=== PATIENT | male | born 1940 | race Caucasian/White ===

== ENCOUNTER 2016-12-04 14:40 | Emergency (ER) | payer MEDICARE, OTHER ==
--- NOTE | ~2016-12-04 | ENPV ---
Vascular Lower Extremities DVT Study Procedure Demographics Patient Name YANE KING Date of Study 12/04/2016 Patient Number [id number] Gender Male Date of 1940 Age 76 Visit Number [id number] Height Accession Number [id number] Weight Room Number BSA BMI Referring Daksha Lewis MD Physician Daksha Mina MD Physician Crispin King MD Physician Ordering Physician Daksha Mina Scouts MD Linux Kernel Developer Antonia Saqib [facility], [facility] Conclusions Summary No evidence of deep vein thrombosis or superficial thrombophlebitis in the lower extremities bilaterally . Procedure Type of Study: Veins:Lower Extremities DVT Study, Lower Extremity Left, Venous Duplex Lower Extremity Bilateral. Appropriate Use Criteria:9 Patient Status:Routine. Study Location:ER. Technical Quality:Good visualization. Velocities are measured in cm/s ; Diameters are measured in cm Right Lower Extremities DVT Study Measurements Right 2D and Doppler Measurements + + + + +------+------+ + !Location !Visualized!Compressibility!Thrombosis!Signal!Reflux!Reflux ! ! ! ! ! ! ! !(sec) ! + + + + +------+------+ + !GSV Thigh !Yes !Yes !None !Phasic!No ! ! + + + + +------+------+ + !Common !Yes !Yes !None !Phasic!No ! ! !Femoral ! ! ! ! ! ! ! + + + + +------+------+ + !Prox !Yes !Yes !None !Phasic!No ! ! !Femoral ! ! ! ! ! ! ! + + + + +------+------+ + !Mid Femoral!Yes !Yes !None !Phasic!No ! ! + + + + +------+------+ + !Dist !Yes !Yes !None !Phasic!No ! ! !Femoral ! ! ! ! ! ! ! + + + + +------+------+ + !Popliteal !Yes !Yes !None !Phasic!No ! ! + + + + +------+------+ + !Gastroc !Yes !Yes !None !Phasic!No ! ! + + + + +------+------+ + !PTV !Yes !Yes !None !Phasic!No ! ! + + + + +------+------+ + !Peroneal !Yes !Yes !None !Phasic!No ! ! + + + + +------+------+ + Left Lower Extremities DVT Study Measurements Left 2D and Doppler Measurements + + + + +------+------+ + !Location !Visualized!Compressibility!Thrombosis!Signal!Reflux!Reflux ! ! ! ! ! ! ! !(sec) ! + + + + +------+------+ + !GSV Thigh !Yes !Yes !None !Phasic!No ! ! + + + + +------+------+ + !Common !Yes !Yes !None !Phasic!No ! ! !Femoral ! ! ! ! ! ! ! + + + + +------+------+ + !Prox !Yes !Yes !None !Phasic!No ! ! !Femoral ! ! ! ! ! ! ! + + + + +------+------+ + !Mid Femoral!Yes !Yes !None !Phasic!No ! ! + + + + +------+------+ + !Dist !Yes !Yes !None !Phasic!No ! ! !Femoral ! ! ! ! ! ! ! + + + + +------+------+ + !Popliteal !Yes !Yes !None !Phasic!No ! ! + + + + +------+------+ + !Gastroc !Yes !Yes !None !Phasic!No ! ! + + + + +------+------+ + !PTV !Yes !Yes !None !Phasic!No ! ! + + + + +------+------+ + !Peroneal !Yes !Yes !None !Phasic!No ! ! + + + + +------+------+ + Impressions Right Impression No DVT seen. Left Impression No DVT seen. Signature dtt: LAURA KENNEDY dtd: 12/04/16 1518 Physician Self [place]
--- NOTE | ~2016-12-04 | ER ---
PATIENT'S NAME: YANE KING [facility] AGE: 76 Y [address] ROOM: [place] [address] LOCATION: [facility] ADMIT DATE: 12/04/2016 ER/Outpatient Report DISCHARGE DATE: 12/04/2016 FAMILY PHYSICIAN: Steven Roa MD ATTENDING PHYSICIAN: Shyam You Time of Arrival: Time of Evaluation: Admission date and time documented in the medical record. I saw the patient at 1500 hours. CHIEF COMPLAINT: Bilateral lower leg pain and swelling, right greater than left. HISTORY OF PRESENT ILLNESS: This patient is a 76-year-old male, who has had right low back pain and right sciatica for the past 3 weeks. He has had increasing swelling in below the knees of both legs over the past 2 days with increased pain in the lower legs over the past 2 days. The right is greater than the left. No change in bladder or bowel habits. No fever, chills, sweats, coughs, colds, or flus. No lightheadedness, dizziness, syncope, or near syncope. No fall or trauma. No headache, eyes, ears, nose, throat, or spine pain. No chest pain, shortness of breath. No abdominal pain, nausea, vomiting, or diarrhea. No urinary frequency, urgency, or dysuria. No incontinence. No skin eruptions or rash. No history of neurological changes, psychiatric issues, or endocrine problems. HOME MEDICATIONS: See attached medication list. ALLERGIES: NONE. SOCIAL HISTORY: The patient smokes a pack of cigarettes a day. Occasional intake of alcohol. SIGNIFICANT PAST MEDICAL HISTORY: 1. Tobacco abuse. 2. COPD. 3. Pneumonia. 4. Benign prostatic hypertrophy. 5. Chronic respiratory failure. PAST SURGICAL HISTORY: Operations: 1. Cholecystectomy. PATIENT'S NAME: YANE KING [facility] AGE: 76 Y [address] ROOM: [place] [address] LOCATION: [facility] ADMIT DATE: 12/04/2016 ER/Outpatient Report DISCHARGE DATE: 12/04/2016 FAMILY PHYSICIAN: Steven Roa MD ATTENDING PHYSICIAN: Shyam You 2. Appendectomy. 3. Amputation of the right forearm. 4. Circumcision. REVIEW OF SYSTEMS: All systems reviewed by me are negative with the exception of those discussed in the history of the present illness. PHYSICAL EXAMINATION: VITAL SIGNS: Temperature 97.8, tympanic; pulse 98; respirations 20; blood pressure 230/107; and O2 saturation on room air is 96%. HEENT: Head; normocephalic. Eyes, ears, nose, throat; clear. NECK: Negative. SPINE: Negative. LUNGS: Clear. No rales, rhonchi, or wheezes. HEART: Regular. Pulses are palpable. No chest wall or ribcage pain to palpation. ABDOMEN: Mildly obese, soft, nondistended, and nontender. Good bowel tones. No organomegaly or abnormal mass palpable. No CVA tenderness. EXTREMITIES: The patient has pitting edema of the lower extremities bilaterally right is little bit worse than the left. No cyanosis. No erythema. It is not hot to the touch. Tender. Neurovascularly appears to be intact. SKIN: Clear. NEUROLOGIC: Straight leg raising is positive on the right at about 35 degrees, negative on the left. Strength is intact. IMAGING STUDIES: Venous Doppler study of both legs showed no evidence of DVT. LABORATORY DATA: CMS was normal except for a low anion gap of 8.2, low calcium of 8.3, and CRP was 5.55. ProBNP was 79. White count was 9900, 65 segs, 21 lymphs, 13 monos, and 1 baso. Hemoglobin is 15.9 with a hematocrit of 47.3, and platelet count is 134,000. PTT was 33, prothrombin time is 9.4 with an INR of 0.9. IMPRESSION: 1. Peripheral edema. No evidence of deep venous thrombosis, cyanosis, erythema, or infection. 2. Low back pain with right sciatica. 3. Tobacco abuse with chronic obstructive pulmonary disease. PLAN: The patient was given Toradol 60 mg IM in the emergency room. Solu-Medrol 125 mg IM in the emergency room. Discharged to home. Observation. Activity as tolerated. Continue present home medications and care. Toradol 10 mg 1 every PATIENT'S NAME: YANE KING [facility] AGE: 76 Y [address] ROOM: [place], [place] [address] LOCATION: [facility] ADMIT DATE: 12/04/2016 ER/Outpatient Report DISCHARGE DATE: 12/04/2016 FAMILY PHYSICIAN: Steven Roa MD ATTENDING PHYSICIAN: Shyam You 6 hours orally x12 doses. Medrol Dosepak to take as directed. We will schedule the patient for MRI of the lumbosacral spine on Tuesday or Tuesday of this coming week. Follow up with personal physician in 3 to 4 days. Discussion ensued with the patient regard to my findings and recommendations, he understands. SHYAM YOU MD SDS/modl /[id number] d: 12/04/16 2319 t: 12/05/16 0612, OUTPATIENT REPORT
[~2016-12-04 14:40] MED LIST: CPAP; DELTASONE20 MG PO; FLOMAX0.4 MG PO
[2016-12-04 16:00] LABS: BASOPHIL # 0.1 K/uL (0.0-0.2); BASOPHIL % 0.5 %; HEMATOCRIT 47.3 % (37.0-53.0); HEMOGLOBIN 15.9 g/dL (11.0-16.0); IMMATURE GRANULOCYTE # 0.1 K/uL (0.0-0.3); IMMATURE GRANULOCYTE % 0.5 %; LYMPHOCYTE # 2.1 K/uL (0.8-4.0); LYMPHOCYTE % 20.9 %; MCH 31.5 pg (27.0-34.0); MCHC 33.6 gm/dL (32.0-36.5); MCV 93.8 fl (83.0-98.0); MONOCYTE # 1.3 K/uL (0.0-1.0); MONOCYTE % 13.1 %; MPV 10.6 fl (9.4-12.4); NEUTROPHIL # (ANC) 6.4 K/uL (1.4-9.0); NRBC % 0 /100WBC (0-0.00); PLATELET COUNT 134 K/uL (150-450); RBC 5.04 M/uL (3.50-5.50); RDW-CV 13.8 % (11.9-14.6); WBC 9.9 K/uL (4.0-11.0)
[2016-12-04 16:02] LABS: PROTIME 9.4 SECONDS (9.8-11.4); PTT 33 SECONDS (25-32)
[2016-12-04 16:19] LABS: ALBUMIN 3.3 gm/dL (3.5-5.0); ANION GAP 8.2 (10.0-19.0); CALCIUM 8.3 mg/dL (8.5-10.5); CREATININE 1.2 mg/dL (0.6-1.3); POTASSIUM 4.2 mMol/L (3.7-5.1); TOTAL BILIRUBIN 0.5 mg/dL (0.0-1.5)
[2016-12-16] MEDS ORDERED: NORCO 5-325 TA1 EACH PO (15:18)
== END 2016-12-04 17:12 | disposition disaster alternative care site (69) ==
LOC: GMED 14:40
PROVIDERS: Emergency Medicine
DX: R60.0 Localized edema (principal); M54.41 Lumbago with sciatica, right side; J44.9 Chronic obstructive pulmonary disease, unspecified; F17.210 Nicotine dependence, cigarettes, uncomplicated; I10 Essential (primary) hypertension; Z87.01 Personal history of pneumonia (recurrent); Z87.438 Personal history of other diseases of male genital organs; Z90.49 Acquired absence of other specified parts of digestive tract; Z89.211 Acquired absence of right upper limb below elbow; Z98.890 Other specified postprocedural states
CPT/HCPCS: J1885; J2930

== ENCOUNTER → 2016-12-06 | Outpatient (CLI) | payer MEDICARE, OTHER ==
[~2016-12-06] MED LIST changes: +NORCO 5-325 TA1 EACH PO
== END | disposition disaster alternative care site (69) ==
LOC: GRAD 10:42
DX: M54.41 Lumbago with sciatica, right side (principal); M43.16 Spondylolisthesis, lumbar region; M54.16 Radiculopathy, lumbar region

== ENCOUNTER → 2016-12-16 | Day surgery (SDC) | payer MEDICARE, OTHER ==
[~2016-12-16] VITALS: Ht 170.2 cm; Wt 96.7 kg
== END ==
LOC: GSDC 14:22 → GPOC 14:30
PROC: 3E0S33Z Introduction of Anti-inflammatory into Epidural Space, Percutaneous Approach (ICD-10-PCS; principal; 2016-12-16)
PROC: 3E0S3BZ Introduction of Anesthetic Agent into Epidural Space, Percutaneous Approach (ICD-10-PCS; 2016-12-16)
DX: M54.16 Radiculopathy, lumbar region (principal); J44.9 Chronic obstructive pulmonary disease, unspecified; G47.30 Sleep apnea, unspecified; Z79.891 Long term (current) use of opiate analgesic; Z91.040 Latex allergy status; Z79.899 Other long term (current) drug therapy; Z89.211 Acquired absence of right upper limb below elbow
CPT/HCPCS: J1030; J1040

== ENCOUNTER 2017-01-14 16:00 | Inpatient (IN) | payer MEDICARE, OTHER ==
[~2017-01-14] VITALS: Ht 170.2 cm; Wt 96.8 kg
--- NOTE | ~2017-01-14 | OR ---
PATIENT'S NAME: YANE KING [facility] AGE: 76 Y [address] ROOM: [address] [address] LOCATION: [facility] ADMIT DATE: 01/19/2017 OR/Procedure Report DISCHARGE DATE: FAMILY PHYSICIAN: Steven Roa MD ATTENDING PHYSICIAN: Sofia Light SURGEON: Sofia Light MD AIRCRAFT ENGINE MECHANIC SUPERVISOR: Claudia Dailey CST DATE OF PROCEDURE: 01/19/2017 PREOPERATIVE DIAGNOSIS: Lumbar spondylosis and stenosis. POSTOPERATIVE DIAGNOSIS: Lumbar radiculopathy secondary to lumbar spondylosis and stenosis. PROCEDURES PERFORMED: 1. Bilateral laminectomy with decompression of neural elements with foraminotomy without diskectomy at L4-5. 2. Bilateral laminectomy and foraminotomy with decompression of neural elements and diskectomy at L5-S1. 3. Use of structural allograft and morcellized autograft fusion at L5-S1, both interbody fusion and posterolateral fusion. 4. Posterior instrumentation with pedicle screws bilaterally at L5 and S1. 5. Use of Trifacta navigation system for pedicle screw placement and use of O- arm for intraoperative visualization. ANESTHESIA: General. HISTORY: This patient is a 76-year-old gentleman who presented with burning pain around the right hip going down into the right leg. MRI scan showed severe right-sided foraminal stenosis which had worsened since 2010 and which could be causing right L4 radiculopathy. The patient also had a decreased right knee jerk. Surgery was recommended for the patient. The above procedures along with the benefits, risks, and alternatives were discussed with him. With his consent, he was brought to the operating room for surgery. PROCEDURE IN DETAIL: In the operating room, the patient was placed in a supine position. Anesthesia was induced, and he was intubated. He was rolled to a prone position on a Jewel table, taking care to protect all pressure points. The incision line was marked out in the midline of his lower back. The whole area was prepped and draped in a sterile fashion. Local anesthesia was infiltrated along the incision line. The #10 blade was used to open the incision and deepen it to the fascia. Self-retaining retractors were placed. The Bovie was used to deepen the incision until the tips of the spinous PATIENT'S NAME: RACICKY, [facility] AGE: 76 Y [address] ROOM: [address] [place], [place] [address] LOCATION: [facility] ADMIT DATE: 01/19/2017 OR/Procedure Report DISCHARGE DATE: FAMILY PHYSICIAN: Steven Roa MD ATTENDING PHYSICIAN: Sofia Light processes were visualized. Paraspinous muscles were dissected off the spinous processes and laminae of L3, L4, L5, and S1. Self-retaining retractors were inserted. Dissection was carried on laterally until we visualized the transverse processes at L4, L5, and S1. The reference frame was attached to the spinous process of L3, and registration was carried out using the stealth system. The O-arm was brought in, and a 3-dimensional picture of the spine was acquired. This O-arm image was merged with the stealth image, and a virtual picture of the spine was created on the workstation. Using these virtual picture of the spine, pedicle screws were placed into the L5 and S1 pedicles. The process for placing the pedicle screws was the same for each screw and will be described for one screw as representing all the others. Using the anatomical entry points, the entry point for the pedicles was identified and verified with the image on the workstation. A harbor boat pilot hole was then drilled. The pedicle finder was used to deepen this hole again using the image on the screen to detect the trajectory and depth. Once the hole was made, the ball-tipped probe was used to feel around to ensure that the wall of the pedicle was not breached. Appropriate-sized screw was then placed in each hole. This was done sequentially for the L5 and S1 pedicles. Decompression was then carried out at L4-5 where the patient had severe foraminal stenosis on the right side. The decompression continued until the nerve roots at L4, L5, and S1 were clearly visualized. The laminectomy bone was harvested to be used for subsequent posterolateral fusion. Having completed the decompression, attention was directed to fusion. The patient had spondylolisthesis and spondylolysis at L5-S1. Bilateral diskectomy was then carried out at L5-S1. The endplates were shaved down. Appropriate-sized pieces of allograft bone filled in with the patient's autograft bone were inserted bilaterally at L5-S1. The transverse processes were also decorticated, and bone graft was placed on top of the transverse processes for posterolateral fusion. A final O-arm image was obtained to confirm placement of the pedicle screws as well as the interbody material, and we had very good placement. Hemostasis was achieved. The retractors were removed. The incision was closed in layers using appropriate suture materials. A sterile dressing was applied. The patient was rolled back to a supine position. His anesthesia was reversed. He was extubated and taken to the recovery room to complete his recovery. I was present at and performed every aspect of this procedure, assisted at different stages by the operating room nurses. There were no apparent intraoperative complications. Swabs, needles, and instruments were all PATIENT'S NAME: YANE KING [facility] AGE: 76 Y [address] ROOM: [address] [address] LOCATION: [facility] ADMIT DATE: 01/19/2017 OR/Procedure Report DISCHARGE DATE: FAMILY PHYSICIAN: Steven Roa MD ATTENDING PHYSICIAN: Sofia Light accounted for at the end of the case. Estimated blood loss was less than 500 mL, and there was no reason for blood transfusion. I expect the patient to benefit from this procedure. In particular, I expect his right hip burning pain to improve. SOFIA LIGHT MD CNO/modl /[id number] CC: Steven Roa MD d: 01/22/17 1313 t: 01/26/17 1409, OPERATIVE SUMMARY
--- NOTE | ~2017-01-14 | DS ---
PATIENT'S NAME: YANE KING [facility] AGE: 76 Y [address] ROOM: [address] [address] LOCATION: [facility] ADMIT DATE: 01/19/2017 Discharge Summary DISCHARGE DATE: 01/23/2017 FAMILY PHYSICIAN: Steven Roa MD ATTENDING PHYSICIAN: Sofia Gardner REASON FOR ADMISSION: The patient is scheduled admission for an elective procedure. The patient presented with lower back pain. TREATMENT RENDERED: The patient was taken to the operating room on January 19, 2017. He underwent lumbar decompression and fusion; decompression at L4, L5, and S1 and the fusion at L5 and S1 with pedicle screws and interbody bone fusion. The surgery was uncomplicated. The patient's hospital stay was uneventful. He was well enough to go home and was dismissed on January 23, 2017, with arrangements made to follow up in the Neurosurgery Clinic. At the time of dismissal, the incision was healing well and patient's pain was well controlled. I will see the patient in followup to make sure that he has continued to do well. FINAL DIAGNOSIS: Lumbar spinal stenosis, status post lumbar decompression and fusion. MD AUGUSTINE LOONEY/allan /[id number] d: t: 01/31/17 0045, DISCHARGE SUMMARY
--- NOTE | ~2017-01-14 | CON ---
PATIENT'S NAME: YANE KING [facility] AGE: 76 Y [address] ROOM: [place] [address] LOCATION: [facility] ADMIT DATE: 01/19/2017 Consultation DISCHARGE DATE: FAMILY PHYSICIAN: Steven Roa MD ATTENDING PHYSICIAN: Sofia Gardner REFERRING PHYSICIAN: Vicente Gibson MD Consult for Dr. Gardner. HISTORY OF PRESENT ILLNESS: This 76-year-old gentleman is referred for rehab evaluation. He was admitted on 01/19/2017. He is status post L4, L5, S1 decompression and release of L4, L5 to S1 spondylolistheses and stenoses done on 01/19/2017, details on record. PAST MEDICAL HISTORY: He is giving the following previous history: 1. History of COPD and stopped smoking for some time now. 2. Hypertension, essential. 3. Lung mass and followed. 4. Still apnea and followed. PHYSICAL EXAMINATION: GENERAL: Alert and oriented now. VITALS: Blood pressure 122/81, temperature 98.3, pulse 95, and respirations 14. NEUROLOGIC: Able to comprehend, express without difficulty. Cranial nerves 2 through 12 are within normal limits. He is able to talk. Speech is clear and not wet. Can swallow without difficulty. Neurologically, he is intact. GENITOURINARY: Good bowel and bladder control. MEDICATIONS: He is on the following meds: 1. [place]. 2. NaCl 0.9%. 3. Flomax. 4. Phenergan. 5. Morphine sulfate. 6. Tylenol. 7. Lactated Ringer. 8. Narcan. 9. Zofran. 10. Diazepam. 11. Fleet Enema. 12. Dulcolax. ASSESSMENT AND PLAN: PATIENT'S NAME: YANE KING [facility] AGE: 76 Y [address] ROOM: [place] [address] LOCATION: [facility] ADMIT DATE: 01/19/2017 Consultation DISCHARGE DATE: FAMILY PHYSICIAN: Steven Roa MD ATTENDING PHYSICIAN: Sofia Gardner So far, he can go with contact guard assistance about 20 feet with a walker and doing well; however, he is slow and at high risk of falling. He has been initiated on PT and OT, which I will continue. I feel that this gentleman will benefit from intensive rehabilitation, and will suggest that he goes on Lovenox, it is up to Dr. Gardner. All the above was explained to him. He verbalized understanding. MD SANTHOSH BATES/allan /[id number] d: 01/22/17 1024 t: 01/23/17 0759, CONSULTATION REPORT
--- NOTE | 2017-01-20 03:53 | NUR ---
Significant Event: A/0 X 3. 02 3L NASAL CANNULA ETCO2 MONITORING. READINESS PARAPROFESSIONAL WAS STOPPED AT 0030. PATIENT HAS SLEEP APNEA, SATS DIPPED MID 80'S AND POP BACK UP LOW 90 WHEN AROUSED. SAT MONITOR PLACED IN MOUTH. PAIN RATE 4-3/10. DOZES EASILY. BACK DRSGS ABD DRY-INTACT. LOGGED ROLLED 2 ASSIST. PATIENT DANGLE AT BEDSIDE [id number], AND STOOD AT BEDSIDE 2 ASSIST, SLIGHT LIGHTHEADED GAITBELT ON. REPOSITIONED IN BED. HAS SOME NUMBNESS RIGHT LOWER LEG BELOW KNEE. BILATERAL CALF PNEUMATICS ON. INCENTIVE SPIROMETER USAGE 1000. TAKES FLUIDS. HAD NAUSEA AT CHANGE OF SHIFT, MED GIVEN, AND LATER NO FURTHER NAUSEA. 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 IV FLUIDS INFUSING, PATIENT SLEEPY. Follow up:
--- NOTE | 2017-01-20 07:11 | NUR ---
Note for 01/19/17 1800- Pt here from PACU at 1715. Had general anesthetic. He has latex allergy. Has own CPAP. Pt rates pain at 4. Morphine SHELVER at 1mg bolus/8 min lockout/20. pt back dressing dry and intact. Pt CSM WNL. Uses IS at 1000. Coughed up thick phlegm. O2 on at 2 liters. Pt has gupta. 475 out in OR and PACU and had 250 ml EBL. 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 VS for you will be 2nd 30 min VS due at 1900. Left wrist had art line that was removed in PACU. No dressing on wrist. Pt has history of sleep apnea, emphysema, COPD. here.
--- NOTE | 2017-01-20 11:22 | NUR ---
Student nurse provided patient cares from 0630 to 1120. Levon Clayton RN, [facility] Instructor
--- NOTE | 2017-01-20 16:00 | NUR ---
SPOKE TO PATIENT REGARDING CM AND OUR ROLE. PATIENT LIVES IN OWN HOME WITH SPOUSE, HE IS PLANNING ON RETURNING HOME WITH HELP FROM HIS SPOUSE. HE HAS ALL HIS DME. HE DOES NOT ANTICIPATE ANY DISCHARGE NEEDS AT THIS TIME.
--- NOTE | 2017-01-20 17:30 | NUR ---
Significant Event: Pt is a/o. Cooperative with cares. Up to chair, amb in room with 1-2 assist, gaitbelt and walker. CSM WNL. Reports R) hip pain. Xray done. [place] 2 tabs for pain control. Kpad to R) hip prn. Follow up:
--- NOTE | 2017-01-21 04:52 | NUR ---
Shift Summary: Patient slept in the recliner all shift. Is able to get from a trx-ak-xalpc position with minimal assist. Ambulates with plateform walker. No drainage to back dressing. Has sleep apnea and wore O2 when sleeping. Gave 2 [place] at 0436. Patient tolerating regular diet well. Removed gupta last night at 2000. Patient voided 150ml around 0400. Urine is very concentrated. Patient is a possible discharge home today.
--- NOTE | 2017-01-21 11:00 | NUR ---
SPOKE TO PATIENT AND HIS SPOUSE AT THE BEDSIDE. PATIENT'S FAMILY VOICE CONCERNS ABOUT HIM GOING HOME. THEY DO NOT FEEL HE IS VERY STEADY ON HIS FEET AND THAT HE HAS STAIRS TO CLIMB WHEN HE GETS INTO THE HOUSE. PRESENTED TO THEM THE OPTION OF HHC OR INPT REHAB. PATIENT IS NOT OPENED TO ANY OF THESE AND TELLS ME HE WANTS TO GO HOME. AND HIS FAMILY SUPPORT THIS, THEY TELL ME THAT IT IS " HIS DECISION" AND THEY ARE NOT GOING TO MAKE HIM DO SOMETHING THAT HE DOES NOT WANT TO DO." I TELL THEM THAT WE WANT TO MAKE SURE HE IS SAFE AND SUGGEST HE COULD GO TO INPT REHAB FOR SHORT STAY. BUT THEY FEEL HE WILL DO OK AT HOME.
--- NOTE | 2017-01-21 12:11 | NUR ---
Student nurse provided patient cares from 0630 to 1230. Levon Clayton RN, [facility] Instructor
--- NOTE | 2017-01-21 14:15 | NUR ---
Significant Event: Pt is a/o. Cooperative with cares. Up to BR with one assist. R) hip pain with ambulation. OT/PT do not feel it is safe for him to go home today. Refused pain meds when last offered. kpad prn R) hip. CSM WNL. Follow up:
--- NOTE | 2017-01-21 17:28 | NUR ---
Significant Event: UP IN CHAIR. NORCO 2 TABS LAST AT 0935. SHOWERED. [place] CDI. USE OF PLATFORM WALKER AND GAIT BELT. RIGHT ARM AMPUTEE. SL R) AC AND L) FOREARM. KPAD TO BACK. POSSIBLE DISCHARGE TOMORROW.
--- NOTE | 2017-01-22 05:37 | NUR ---
Shift summary: Patient can ambulate with one assist and plateform walker. Gave 2 norco/Valium at 2111. Patient had large BM last night. Possible discharge home today or ?Girp.
--- NOTE | 2017-01-22 14:19 | NUR ---
Significant Event: Pt Aox3. Feeling much better today. Had very Large BM last night. Voiding without difficulty. Up with SBA, platform walker and gait belt. Taking PO well. Pain well controlled with one [place] PRN. Dressing changed today per Dr. Gardner, C/D/I. Plans to go home tomorrow. Follow up:
--- NOTE | 2017-01-23 03:27 | NUR ---
Significant Event: Alert and oriented X3. R) lower extremity slightly weaker compared to L). Othwerwise neurochecks WNL. Placed on pulse ox, desated to 75% while sleeping. Pt refuses CPAP (states he has CPAP at home, but does not wear). Placed on 2L 02 and increased >90%. Up to bathroom with SBA, gait belt and platform walker. Mepilex dressing is CDI. IV to R) AC. Voiding without difficulty. [place] X2 given at HS. Follow up: Possible discharge home today.
[2017-01-23] MEDS ORDERED: NORCO 5-325 TA1 EACH PO (10:41)
== END 2017-01-23 11:00 | disposition disaster alternative care site (69) | DRG 460 ==
LOC: G3N 01-19 07:38
PROVIDERS: ADMIT Neurological Surgery
PROC: 8E0WXBZ Computer Assisted Procedure of Trunk Region (ICD-10-PCS; principal; 2017-01-19)
PROC: 01NB0ZZ Release Lumbar Nerve, Open Approach (ICD-10-PCS; principal; 2017-01-19)
PROC: 0SG3071 Fusion of Lumbosacral Joint with Autologous Tissue Substitute, Posterior Approach, Posterior Column, Open Approach (ICD-10-PCS; principal; 2017-01-19)
DX: M47.26 Other spondylosis with radiculopathy, lumbar region (principal); J44.9 Chronic obstructive pulmonary disease, unspecified; M48.06 Spinal stenosis, lumbar region; M43.17 Spondylolisthesis, lumbosacral region; G47.33 Obstructive sleep apnea (adult) (pediatric); N40.0 Benign prostatic hyperplasia without lower urinary tract symptoms; R91.8 Other nonspecific abnormal finding of lung field; H91.93 Unspecified hearing loss, bilateral; Z89.211 Acquired absence of right upper limb below elbow; Z87.891 Personal history of nicotine dependence
CPT/HCPCS: C1713; J0690; J2001; J2270; J2405; J2550; J7030; J7120; P9045